=== PATIENT | male | born 1975 | race Caucasian/White ===

== ENCOUNTER → 2019-04-30 | Outpatient (CLI) | payer BC ==
--- NOTE | 2019-04-30 12:26 | Diagnostic Imaging Report ---
EXAMINATION: RIBS UNILAT W/CXR INDICATION: Trauma, left rib pain COMPARISON: None FINDINGS: LINES/TUBES:None LUNGS:The lungs are well-inflated. No focal consolidation or pulmonary edema. PLEURA:No pleural effusion or pneumothorax. MEDIASTINUM:The cardiomediastinal silhouette appears normal in size and shape. BONES/SOFT TISSUES:No displaced rib fracture. ABDOMEN:No free air under the diaphragm. IMPRESSION: No radiographic evidence of acute traumatic injury to the thorax. No focal pneumonia or pulmonary edema. Signed by: Darian Acuña MD on 04/30/2019 12:23 PM
== END ==
LOC: RAD 11:42
PROVIDERS: ATTEND Internal Medicine
DX: S29.9XXA Unspecified injury of thorax, initial encounter (principal); W18.30XA Fall on same level, unspecified, initial encounter
CPT/HCPCS: 71101

== ENCOUNTER 2024-02-16 11:19 | Inpatient (IN) | payer BC ==
[2024-02-16] VITALS (8 sets, daily range): BP systolic 114–145; BP diastolic 73–86; PULSE 64–95; RESP 15–18; TEMP 98.3–98.5; O2SAT 99–100
[~2024-02-16] VITALS: Ht 182.9 cm; Wt 90.7 kg
[~2024-02-16 11:19] MED LIST: FENTANYL CITRATE/PF 100MCG/2 ML INJ ONE; MIDAZOLAM HCL 2 MG/2 ML VIAL ONE
[2024-02-16 14:06] LABS: BASOPHILS # (AUTO) 0.1 (0.0-0.1); BASOPHILS % 0.4 % (0.0-1.0); EOSINOPHILS % 0.3 % (0.0-6.0); HEMATOCRIT 37.4 % (38.2-49.6); HEMOGLOBIN 13.4 g/dL (14.0-18.0); LYMPHOCYTES % 8.9 % (18.0-39.1); MEAN CORPUSCULAR HEMOGLOBIN 35.1 pg (28-32); MEAN CORPUSCULAR HGB CONC 35.8 g/dL (31-35); MEAN CORPUSCULAR VOLUME 97.9 fL (81-99); MONOCYTES % 8.7 % (4.4-11.3); NEUTROPHILS # (AUTO) 9.5 (2.1-6.9); NEUTROPHILS % 81.2 % (38.7-80.0); PLATELET COUNT 220 x10e3/uL (140-360); RED BLOOD COUNT 3.82 x10e6/uL (4.3-5.7); RED CELL DISTRIBUTION WIDTH 11.1 % (11.7-14.4); WHITE BLOOD COUNT 11.69 x10e3/uL (4.8-10.8)
[2024-02-16 14:18] LABS: ALBUMIN 4.9 g/dL (3.5-5.0); ALBUMIN/GLOBULIN RATIO 1.8 (0.8-2.0); BILIRUBIN,TOTAL 0.8 mg/dL (0.2-1.2); CALCIUM 9.2 mg/dL (8.4-10.2); CREATININE, SERUM 0.86 mg/dL (0.72-1.25); TOTAL PROTEIN 7.7 g/dL (6.5-8.1)
[2024-02-16] MEDS: CYCLOBENZAPRINE HCL 10 MG TAB PO ONE (15:43)
[2024-02-16] MEDS ORDERED: IOPAMIDOL 370 MG/ML 100 ML INFUS..BTL INJ ONE ×2 (15:59→22:29)
[2024-02-16] MEDS ORDERED: SODIUM CHLORIDE FLUSH 10 ML SYR INJ PRN (16:00)
[2024-02-16] MEDS ORDERED: ONDANSETRON HCL INJ 2MG/ML 2ML 2 MG/ML VIAL IV PRN ×2 (16:00→21:30)
[2024-02-16 16:02] LABS: PARTIAL THROMBOPLASTIN TIME 29.8 seconds (23.8-35.5); PROTHROMBIN TIME 13.7 seconds (11.9-14.5)
[2024-02-16] MEDS: KETOROLAC TROMETHAMINE 30 MG/ML VIAL IV STA (16:17)
[2024-02-16] MEDS: MUPIROCIN 2% OINT 22 GM TUBE NS SCH (16:20)
[2024-02-16] MEDS: HYDROCODONE/APAP 5MG-325MG TAB PO ONE (17:10)
[2024-02-16] MEDS ORDERED: PROPOFOL IV EMULSION 10 MG/ML 20 ML VIAL ONE (17:48)
[2024-02-16] MEDS ORDERED: DEXAMETHASONE SOD PHOS INJ 4 MG/ML SDV ONE (17:48)
[2024-02-16] MEDS ORDERED: LIDOCAINE HCL 2% LOCAL INJ 5 ML SDV VIAL INJ ONE (17:48)
[2024-02-16] MEDS ORDERED: EPHEDRINE SULFATE INJ 50 MG/ML VIAL ONE (17:48)
[2024-02-16] MEDS ORDERED: SEVOFLURANE INHAL SOLN 250 ML PEN BTL ONE (17:48)
[2024-02-16] MEDS ORDERED: ONDANSETRON HCL INJ 2MG/ML 2ML 2 MG/ML VIAL ONE (17:48)
[2024-02-16 20:35] LABS: BASOPHILS % 0.3 % (0.0-1.0); EOSINOPHILS % 0.2 % (0.0-6.0); HEMATOCRIT 34.1 % (38.2-49.6); HEMOGLOBIN 12.1 g/dL (14.0-18.0); LYMPHOCYTES # (AUTO) 0.9 (1.0-3.2); LYMPHOCYTES % 8.8 % (18.0-39.1); MEAN CORPUSCULAR HGB CONC 35.5 g/dL (31-35); MEAN CORPUSCULAR VOLUME 98.6 fL (81-99); MONOCYTES # (AUTO) 1.2 (0.2-0.8); MONOCYTES % 11.2 % (4.4-11.3); NEUTROPHILS # (AUTO) 8.5 (2.1-6.9); NEUTROPHILS % 79.1 % (38.7-80.0); PLATELET COUNT 222 x10e3/uL (140-360); RED BLOOD COUNT 3.46 x10e6/uL (4.3-5.7); WHITE BLOOD COUNT 10.71 x10e3/uL (4.8-10.8)
[2024-02-16 20:44] LABS: ANION GAP 15.1 mmol/L (8-16); BLOOD UREA NITROGEN 7 mg/dL (7-26); BUN/CREATININE RATIO 8 (6-25); CALCIUM 9.3 mg/dL (8.4-10.2); CARBON DIOXIDE 20 mmol/L (22-29); CHLORIDE 87 mmol/L (98-107); CREATININE, SERUM 0.85 mg/dL (0.72-1.25); EST GLOMERULAR FILTRATION RATE 109 ML/MIN (>=60); GLUCOSE 122 mg/dL (74-118); POTASSIUM 4.1 mmol/L (3.5-5.1)
[2024-02-16] MEDS ORDERED: HYDROCODONE/APAP 5MG-325MG TAB PO PRN (21:30)
[2024-02-16] MEDS ORDERED: DOCUSATE SODIUM 100 MG CAP PO PRN (21:30)
[2024-02-16] MEDS ORDERED: DIPHENHYDRAMINE HCL 25 MG CAP PO PRN (21:30)
[2024-02-16] MEDS ORDERED: ACETAMINOPHEN 325 MG TAB PO PRN (21:30)
[2024-02-16] MEDS ORDERED: BENZONATATE 100 MG CAP PO PRN (21:30)
[2024-02-16] MEDS ORDERED: MELATONIN 5 MG TABLET PO PRN (21:30)
[2024-02-16] MEDS ORDERED: HYDRALAZINE HCL 20 MG/ML VIAL IV PRN (21:30)
[2024-02-16] MEDS ORDERED: POTASSIUM CHLORIDE 20 MEQ TAB CR PO PRN (21:30)
[2024-02-16] MEDS ORDERED: ALBUTEROL/IPRATROPIUM 3 ML NEB NEB PRN (21:30)
[2024-02-16] MEDS ORDERED: SIMETHICONE 80 MG CHEW PO PRN (21:30)
[2024-02-16] MEDS ORDERED: LIDOCAINE 4% PATCH TP PRN (21:30)
[2024-02-16] MEDS ORDERED: Morphine 4mg INJECTION 4 MG/ML INJ IV PRN (21:30)
[2024-02-16] MEDS ORDERED: DEXTROSE 50% SYRINGE 50 ML IV PRN (21:30)
[2024-02-16] MEDS: HYDROMORPHONE 1MG/1ML INJ ONE (21:43)
[2024-02-16] MEDS: SODIUM CHLORIDE 1 GM TAB PO ONE (22:29)
[2024-02-16] MEDS ORDERED: SODIUM CHLORIDE 0.9% 0 ML ONE (22:29)
[2024-02-16 22:38] LABS: BASOPHILS % 0.2 % (0.0-1.0); HEMATOCRIT 27.8 % (38.2-49.6); HEMOGLOBIN 9.9 g/dL (14.0-18.0); LYMPHOCYTES # (AUTO) 0.5 (1.0-3.2); LYMPHOCYTES % 4.3 % (18.0-39.1); MEAN CORPUSCULAR HEMOGLOBIN 35.9 pg (28-32); MEAN CORPUSCULAR HGB CONC 35.6 g/dL (31-35); MEAN CORPUSCULAR VOLUME 100.7 fL (81-99); MONOCYTES # (AUTO) 0.7 (0.2-0.8); MONOCYTES % 5.3 % (4.4-11.3); NEUTROPHILS # (AUTO) 11.1 (2.1-6.9); NEUTROPHILS % 89.8 % (38.7-80.0); PLATELET COUNT 173 x10e3/uL (140-360); RED BLOOD COUNT 2.76 x10e6/uL (4.3-5.7); RED CELL DISTRIBUTION WIDTH 11.3 % (11.7-14.4); WHITE BLOOD COUNT 12.34 x10e3/uL (4.8-10.8)
[2024-02-16] MEDS ORDERED: TRILEPTAL300 MG PO (22:46)
[2024-02-16] MEDS ORDERED: LUNESTA3 MG PO (22:46)
[2024-02-16] MEDS ORDERED: VALACYCLOVIR500 MG PO (22:46)
[2024-02-16] MEDS ORDERED: CITALOPRAM HBR20 MG PO (22:46)
[2024-02-16] MEDS ORDERED: AVAPRO300 MG PO (22:46)
[2024-02-16] MEDS ORDERED: SODIUM CHLORIDE 0.9% 250ML 250 ML IV ONE (23:45)
[2024-02-17] VITALS (8 sets, daily range): BP systolic 75–105; BP diastolic 43–66; PULSE 78–94; O2SAT 98–100
[2024-02-17 00:38] LABS: HEMATOCRIT 28.8 % (38.2-49.6); HEMOGLOBIN 10.3 g/dL (14.0-18.0)
[2024-02-17] MEDS ORDERED: Vancomycin IV 1 GM in SODIUM CHLORIDE 0.9% 250ML 250 ML IV SCH (00:45)
[2024-02-17] MEDS ORDERED: KETOROLAC TROMETHAMINE 30 MG/ML VIAL IV STA (00:49)
[2024-02-17] MEDS ORDERED: KETOROLAC TROMETHAMINE 30 MG/ML VIAL ONE (00:51)
[2024-02-17 00:57] LABS: ANION GAP 13.6 mmol/L (8-16); BLOOD UREA NITROGEN < 5 mg/dL (7-26); BUN/CREATININE RATIO 6 (6-25); CALCIUM 8.2 mg/dL (8.4-10.2); CARBON DIOXIDE 17 mmol/L (22-29); CHLORIDE 93 mmol/L (98-107); CREATINE KINASE 394 IU/L (30-200); CREATININE, SERUM 0.84 mg/dL (0.72-1.25); EST GLOMERULAR FILTRATION RATE 109 ML/MIN (>=60); GLUCOSE 168 mg/dL (74-118); POTASSIUM 4.6 mmol/L (3.5-5.1)
[2024-02-17] MEDS: SODIUM CHLORIDE 0.9% 1000ML 1,000 ML IV SCH (01:04)
[2024-02-17 01:06] LABS: SODIUM 119 mmol/L (136-145)
[2024-02-17] MEDS: MIDODRINE 2.5 MG TAB PO STA (01:06)
[2024-02-17 01:18] LABS: HDL CHOLESTEROL 50 MG/DL (40-60); TRIGLYCERIDES 33 MG/DL (0-149)
[2024-02-17 01:38] LABS: THYROID STIMULATING HORMONE 2.182 uIU/mL (0.350-4.940)
[2024-02-17 01:42] LABS: CHOL/HDL RATIO 2.9 (3.9-4.7); CHOLESTEROL 145 MD/DL (0-199); LDL CHOLESTEROL 88 MG/DL (60-130)
[2024-02-17] MEDS ORDERED: SODIUM CHLORIDE 0.9% 100 ML ONE (01:46)
[2024-02-17 01:47] LABS: MAGNESIUM 1.7 MG/DL (1.3-2.1)
[2024-02-17] MEDS ORDERED: PANTOPRAZOLE SOD 40 MG TABEC PO SCH (07:30)
[2024-02-17] MEDS ORDERED: SODIUM CHLORIDE 1 GM TAB PO SCH (09:00)
[2024-02-17] MEDS ORDERED: SODIUM BICARBONATE 650 MG TAB PO SCH (09:00)
[2024-02-17] MEDS ORDERED: ENOXAPARIN SOD INJ 40 MG/0.4 ML SYR SC SCH (17:00)
== END 2024-02-17 02:10 | disposition other institution (70) | DRG 982 ==
LOC: ER 11:51 → ERHOLD 16:05 → ICU 22:03
PROVIDERS: ADMIT Internal Medicine; ATTEND Internal Medicine
PROC: 0KNR0ZZ Release Left Upper Leg Muscle, Open Approach (ICD-10-PCS; principal; 2024-02-16 20:30)
PROC: 0KCR0ZZ Extirpation of Matter from Left Upper Leg Muscle, Open Approach (ICD-10-PCS; 2024-02-16 20:30)
DX: T79.A22A Traumatic compartment syndrome of left lower extremity, initial encounter (principal); E87.1 Hypo-osmolality and hyponatremia; T79.6XXA Traumatic ischemia of muscle, initial encounter; S70.12XA Contusion of left thigh, initial encounter; I10 Essential (primary) hypertension; W01.0XXA Fall on same level from slipping, tripping and stumbling without subsequent striking against object, initial encounter; Y93.02 Activity, running; Z88.1 Allergy status to other antibiotic agents; Z88.8 Allergy status to other drugs, medicaments and biological substances; Z82.49 Family history of ischemic heart disease and other diseases of the circulatory system
CPT/HCPCS: 36415; 71045; 71250; 73701; 75635; 80048; 80053; 80061; 82550; 83036; 83735; 83930; 83935; 84295; 84300; 84443; 85014; 85018; 85025; 85610; 85730; 86850; 86900; 86920; 99284; J1100; J1171; J1885; J2003; J2250; J2270; J2405; J7030; J7050; J7799; Q9967